=== PATIENT | male | born 1950 | race Caucasian/White ===

== ENCOUNTER 2021-04-07 06:06 | Outpatient (REF) | payer MEDICARE, SELFPAY ==
[2021-04-07 11:22] LABS: MANUAL DIFF FLAG NO
[2021-04-07 11:32] LABS: Basophils Absolute Auto 0.1 X10*3/uL (0.0-0.2); Basophils Percent Auto 1.9 % (0-2); Eosinophils Absolute Auto 0.4 X10*3/uL (0.0-0.4); Eosinophils Percent Auto 5.7 % (0-4); Hemoglobin 15.1 g/dl (14.0-18.0); Imm Gran Abs Auto 0.01 X10*3/uL (0.00-0.03); Imm Gran Pct Auto 0.2 % (0.0-0.4); Lymphocytes Absolute Auto 1.7 X10*3/uL (1.2-4.9); Lymphocytes Percent Auto 26.2 % (20-40); Mean Corpuscular HGB Conc 33.6 g/dl (31.0-36.0); Mean Corpuscular Hemoglobin 31.5 pg (27.0-33.0); Mean Corpuscular Volume 93.8 fL (80-98); Monocytes Absolute Auto 0.7 X10*3/uL (0.1-1.2); Monocytes Percent Auto 10.7 % (2-11); Neutrophils Absolute Auto 3.5 X10*3/uL (2.0-8.3); Neutrophils Percent Auto 55.3 % (45-73); Platelet Count 226 X10*3/uL (160-400); Red Cell Distribution Width 12.1 % (11.0-16.0); White Blood Count 6.3 X10*3/uL (4.8-10.8)
[2021-04-07 12:27] LABS: Alanine Aminotransferase 23 U/L (0-40); Albumin Level 4.6 g/dL (3.5-5.0); Alkaline Phosphatase 43 U/L (39-117); Anion Gap 15 (12-20); Aspartate Amino Transferase 27 U/L (5-37); Bilirubin Total 1.1 mg/dL (0.0-1.0); Blood Urea Nitrogen 14 mg/dL (9-16); Calcium 9.6 mg/dL (8.4-10.2); Carbon Dioxide 26 mmol/L (22-29); Chloride 105 mmol/L (96-108); Cholesterol 203 mg/dL; Estimated Glomerular Filt Rate > 60; Glucose Fasting 83 mg/dL (60-99); HDL Cholesterol 64 mg/dL; LDL Cholesterol Calculated 120 mg/dl; Potassium 4.8 mmol/L (3.3-5.1); Sodium 141 mmol/L (135-145); Triglycerides 97 mg/dL
[2021-04-07 13:03] LABS: Prostate Specific Antigen 0.23 ng/mL (<0.05-4.0)
== END 2021-04-07 06:07 | disposition home or self-care (01) ==
LOC: HO.HMGCLDS 06:06
PROVIDERS: PCP Internal Medicine Medical Oncology; Visit Provider Internal Medicine Medical Oncology
DX: Z12.5 Encounter for screening for malignant neoplasm of prostate (principal); E78.5 Hyperlipidemia, unspecified; E66.3 Overweight; N40.0 Benign prostatic hyperplasia without lower urinary tract symptoms
CPT/HCPCS: 36415; 80053; 80061; 84153; 85025

== ENCOUNTER 2022-04-10 06:29 | Outpatient (REF) | payer MEDICARE, SELFPAY ==
[2022-04-10 11:51] LABS: MANUAL DIFF FLAG NO
[2022-04-10 12:10] LABS: Basophils Absolute Auto 0.1 X10*3/uL (0.0-0.2); Basophils Percent Auto 1.7 % (0-2); Eosinophils Absolute Auto 0.4 X10*3/uL (0.0-0.4); Eosinophils Percent Auto 6.3 % (0-4); Hematocrit 44.2 % (42.0-52.0); Hemoglobin 14.8 g/dl (14.0-18.0); Imm Gran Abs Auto 0.01 X10*3/uL (0.00-0.03); Imm Gran Pct Auto 0.2 % (0.0-0.4); Lymphocytes Absolute Auto 1.7 X10*3/uL (1.2-4.9); Lymphocytes Percent Auto 26.2 % (20-40); Mean Corpuscular HGB Conc 33.5 g/dl (31.0-36.0); Mean Corpuscular Hemoglobin 31.1 pg (27.0-33.0); Mean Corpuscular Volume 92.9 fL (80.0-98.0); Monocytes Absolute Auto 0.6 X10*3/uL (0.1-1.2); Monocytes Percent Auto 9.5 % (2-11); Neutrophils Absolute Auto 3.7 x10*3/uL (2.0-8.3); Neutrophils Percent Auto 56.1 % (45-73); Platelet Count 253 X10*3/uL (160-400); Red Blood Count 4.76 X10*6/uL (4.60-5.80); White Blood Count 6.5 X10*3/uL (4.8-10.8)
[2022-04-10 12:18] LABS: Alanine Aminotransferase 22 U/L (0-40); Albumin Level 4.8 g/dL (3.5-5.0); Alkaline Phosphatase 47 U/L (39-117); Anion Gap 14 (12-20); Aspartate Amino Transferase 26 U/L (5-37); Bilirubin Total 0.9 mg/dL (0.0-1.0); Blood Urea Nitrogen 19 mg/dL (9-16); Calcium 9.7 mg/dL (8.4-10.2); Carbon Dioxide 27 mmol/L (22-29); Chloride 105 mmol/L (96-108); Cholesterol 213 mg/dL; Estimated Glomerular Filt Rate > 60; Glucose Fasting 92 mg/dL (60-99); HDL Cholesterol 58 mg/dL; LDL Cholesterol Calculated 137 mg/dl; Potassium 4.7 mmol/L (3.3-5.1); Sodium 141 mmol/L (135-145); Total Protein 7.4 g/dL (6.5-8.0); Triglycerides 90 mg/dL
== END 2022-04-10 06:30 | disposition home or self-care (01) ==
LOC: HO.HMGCLDS 06:29
PROVIDERS: PCP Internal Medicine Medical Oncology; Visit Provider Internal Medicine Medical Oncology
DX: E78.5 Hyperlipidemia, unspecified (principal); N40.0 Benign prostatic hyperplasia without lower urinary tract symptoms
CPT/HCPCS: 36415; 80053; 80061; 85025

== ENCOUNTER 2023-04-15 06:08 | Outpatient (REF) | payer MEDICARE, SELFPAY ==
[2023-04-15 11:57] LABS: MANUAL DIFF FLAG NO
[2023-04-15 12:14] LABS: Basophils Absolute Auto 0.1 X10*3/uL (0.0-0.2); Basophils Percent Auto 1.6 % (0-2); Eosinophils Absolute Auto 0.4 X10*3/uL (0.0-0.4); Hematocrit 43.9 % (42.0-52.0); Hemoglobin 14.4 g/dl (14.0-18.0); Imm Gran Abs Auto 0.02 X10*3/uL (0.00-0.03); Imm Gran Pct Auto 0.3 % (0.0-0.4); Lymphocytes Absolute Auto 1.5 X10*3/uL (1.2-4.9); Mean Corpuscular HGB Conc 32.8 g/dl (31.0-36.0); Mean Corpuscular Hemoglobin 31.3 pg (27.0-33.0); Mean Corpuscular Volume 95.4 fL (80.0-98.0); Mean Platelet Volume 11.2 fL (9.4-12.4); Monocytes Absolute Auto 0.7 X10*3/uL (0.1-1.2); Monocytes Percent Auto 8.5 % (2-11); Neutrophils Absolute Auto 4.9 x10*3/uL (2.0-8.3); Neutrophils Percent Auto 64.6 % (45-73); Platelet Count 211 X10*3/uL (160-400); Red Cell Distribution Width 12.3 % (11.0-16.0); White Blood Count 7.6 X10*3/uL (4.8-10.8)
[2023-04-15 12:29] LABS: Alanine Aminotransferase 21 U/L (0-40); Albumin Level 4.4 g/dL (3.5-5.0); Alkaline Phosphatase 45 U/L (39-117); Anion Gap 11 (12-20); Aspartate Amino Transferase 26 U/L (5-37); Bilirubin Total 0.6 mg/dL (0.0-1.0); Blood Urea Nitrogen 18 mg/dL (9-16); Calcium 9.8 mg/dL (8.4-10.2); Carbon Dioxide 26 mmol/L (22-29); Chloride 108 mmol/L (96-108); Cholesterol 189 mg/dL (<200); Estimated Glomerular Filt Rate > 60; Glucose Fasting 92 mg/dL (60-99); HDL Cholesterol 57 mg/dL (>40); LDL Cholesterol Calculated 112 mg/dL (<100); Potassium 4.3 mmol/L (3.3-5.1); Sodium 141 mmol/L (135-145); Total Protein 7.2 g/dL (6.5-8.0); Triglycerides 101 mg/dL (<150)
[2023-04-15 13:15] LABS: Prostate Specific Antigen 0.49 ng/mL (<0.05-4.0)
== END 2023-04-15 06:09 | disposition home or self-care (01) ==
LOC: HO.HMGCLDS 06:08
PROVIDERS: PCP Internal Medicine Medical Oncology; Visit Provider Internal Medicine Medical Oncology
DX: Z00.00 Encounter for general adult medical examination without abnormal findings (principal); E66.3 Overweight; N40.0 Benign prostatic hyperplasia without lower urinary tract symptoms; Z12.5 Encounter for screening for malignant neoplasm of prostate
CPT/HCPCS: 36415; 80053; 80061; 84153; 85025

== ENCOUNTER 2023-11-11 10:28 | Emergency (ER) | payer MEDICARE, SELFPAY ==
--- NOTE | 2023-11-11 | ECG_ITS ---
Test Reason : A-FIB Blood Pressure : / mmHG Vent. Rate : 114 BPM Atrial Rate : 000 BPM P-R Int : 000 ms QRS Dur : 086 ms QT Int : 302 ms P-R-T Axes : 000 023 150 degrees QTc Int : 416 ms Atrial fibrillation with rapid ventricular response Minimal voltage criteria for LVH, may be normal variant ( Sokolow-Nguyễn ) ST & T wave abnormality, consider lateral ischemia Abnormal ECG No previous ECGs available Referred By: Generic ED Physician Electronically Signed By:VALERY KHAN MD
--- NOTE | ~2023-11-11 | XR_ITS ---
EXAMINATION: XR CHEST CLINICAL INFORMATION: Shortness of breath. Patient states has been in atrial fibrillation since 11/03/2014 Since COMPARISON: None available. TECHNIQUE: 2 views of the chest were obtained. FINDINGS: The lungs are well hyperinflated with flattening of the hemidiaphragms. No focal consolidation, interstitial pulmonary edema or pneumothorax. No pleural effusion. Heart size is upper limits of normal. Calcification of the thoracic arch indicative of atherosclerotic disease. Mild degenerative changes involve the thoracic spine. Calcification projects over the heart,? Related to the aortic valve. XR/XR chest 2V IMPRESSION: 1. No acute abnormality. 2. Question of calcification of the aortic valve.
[2023-11-11 10:44] VITALS: BP 149/73; PULSE 103; RESP 18; TEMP 36.8; O2SAT 96; BMI 26.6
--- NOTE | 2023-11-11 10:58 | ED_ITS ---
HPI - Arrhythmia/Palpitations General Chief Complaint: Arrhythmia/Palpitations Stated Complaint: dr licona sent over for IV Time Seen by Provider: 11/11/23 10:58 Source: patient, old records reviewed and other Mode of arrival: ambulatory Limitations: no limitations History of Present Illness HPI narrative: 73 y/o male presents to the ER from his PCP (Dr. Alvarez's office) for evaluation of new onset afib. He has been SOB and very dyspneic with exertion for the last 3 days. He states for the last 1 week he noticed things were off and he was being more tired doing his usual activity. He states he has been SOB with laying flat which is new for him as well. He has not slept in the last 3 nights because he can't lay down. He denies any chest pain. No swelling. No N/V/D or abdominal pain. He went to his PCP's office today where he was found to be in new onset afib, HR 90-120s. Sent to the ER for evaluation and treatment. MD complaint: irregular heart beat and atrial fibrillation Onset (ago): day(s) Duration: intermittent Severity: moderate Context: occurred during exertion and other (and laying flat - SOB) Associated symptoms: shortness of breath Related Data Previous Rx's ?Medication ?Instructions ?Recorded apixaban 5 mg tablet (Eliquis) 5 mg PO BID #60 tabs 11/11/23 metoprolol succinate 50 mg 50 mg PO DAILY #30 tabs 11/11/23 tablet,extended release 24 hr (Toprol XL) Allergies Allergy/AdvReac Type Severity Reaction Status Date / Time No Known Allergies Allergy Verified 11/11/23 10:46 Review of Systems 2 Review of Systems: Yes all other systems are reviewed and are negative [facility] Social History Social History Smoked in Last 30 Days: No Use of substances other than those prescribed or required for medical reasons: No Advance Directives: No Advance Directives Information Provided: Yes Physical Exam 2 Vital Signs: Vital Signs: Last Vital Signs Temp 97.7 F 11/11/23 13:03 Pulse 90 11/11/23 13:06 Resp 20 11/11/23 13:03 BP 137/83 11/11/23 13:06 Pulse Ox 96 11/11/23 13:03 O2 Del Method Room Air 11/11/23 13:03 BMI result Body Mass Index 26.6 Appearance: Alert. Oriented X3. No acute distress. Head: normocephalic, atraumatic. Eyes: Pupils equal, round and reactive to light. ENT: Pharynx normal. No tonsillar swelling or exudate. Neck: Normal inspection. Neck supple. No JVD. CVS: Irregularly irregular, rate low 100s. No murmur. Pulses normal. Respiratory: No respiratory distress. Breath sounds normal. Abdomen: Soft and nontender. +BS x4 Skin: Skin warm and dry. Normal skin color. Normal skin turgor. No rashes. Extremities: No lower extremity edema. No joint swelling. Neuro/psych: Oriented X 3. No motor deficit. No sensory deficit. CN II-XII intact. Normal speech and cognition. Course Reevaluation(s) Reevaluation #1: Patient rapid AFib, heart rate 120. IV Cardizem given. Reevaluation #2: Heart rates 70s to 80s after 10 mg of IV cardizem given. Medications Administered Discontinued Medications Generic Name Dose Route Start Last Admin Trade Name Freq PRN Reason Stop Dose Admin Diltiazem HCl 10 mg 11/11/23 11:11 11/11/23 11:31 Diltiazem Hcl 50 Mg/10 Ml Vial IVPUSH 11/11/23 11:12 10 mg STAT STA Administration Metoprolol Succinate 50 mg 11/11/23 12:43 11/11/23 13:06 Metoprolol Succinate Er 50 Mg Tab.Er.24h PO 11/11/23 12:44 50 mg ONCE ONE Administration Protocol Medical Decision Making Medical Decision Making MDM Narrative: 73 yo male with history of HLD and BPH presenting with new onset afib. No cardiac risk factors. No cardiac history aside from a bicuspid aortic valve. He had an echocardiogram many many years ago. No CHF history. He arrives to the ER with heart rates 100-120. He was given IV diltiazem, 10 mg and tolerated it well. Heart rates decreased to 70s 80s. He would like to go home. BNP 900. No evidence of volume overload on examination. No JVD. Chads Vasc score is 2. We discussed stroke risk and anticoagulation. Patient initially was against anticoagulation however we sat down and discussed at more. He is willing to take Eliquis with the hopes of not being on it long-term. Cardiology was consulted. Dr. Hardin is recommending 50 mg of p.o. Toprol in addition to Eliquis. He will need outpatient follow up in the office. He will need an echocardiogram, possible cardioversion if still symptomatic. He understands the importance of remaining on anticoagulation. He was encouraged monitor his pulse rate at home and return to the ER if he has new or worsening symptoms. Patient agrees with plan and is stable for discharge home with p.o. meds and outpatient Cardiology follow-up Differential Diagnosis Differential Diagnoses: The differential diagnosis associated with the presentation includes New onset AFib, SVT, paroxysmal atrial tachycardia Admission/Observation Consideration of admission/observation: Escalation of care including admission/observation considered Consult Healthcare Provider Management of the patient was discussed with: Termite Control Technician Dr. Hardin cardiology Lab Data MDM Lab Attestation statement: I reviewed the patient's lab results. Elevated BNP, normal electrolytes 11/11/23 11:15 11/11/23 11:15 Labs: Lab Results 11/11/23 Range/Units 11:15 WBC 8.0 (4.8-10.8) X10*3/uL RBC 4.62 (4.60-5.80) X10*6/uL Hgb 14.4 (14.0-18.0) g/dl Hct 42.9 (42.0-52.0) % MCV 92.9 (80.0-98.0) fL MCH 31.2 (27.0-33.0) pg MCHC 33.6 (31.0-36.0) g/dl RDW 12.6 (11.0-16.0) % Plt Count 203 (160-400) X10*3/uL MPV 10.8 (9.4-12.4) fL Immature Gran % (Auto) 0.3 (0.0-0.4) % Neut % (Auto) 73.8 H (45-73) % Lymph % (Auto) 14.5 L (20-40) % [place] % (Auto) 9.0 (2-11) % Eos % (Auto) 1.6 (0-4) % Baso % (Auto) 0.8 (0-2) % Lymph # (Auto) 1.2 (1.2-4.9) X10*3/uL [place] # (Auto) 0.7 (0.1-1.2) X10*3/uL Eos # (Auto) 0.1 (0.0-0.4) X10*3/uL Baso # (Auto) 0.1 (0.0-0.2) X10*3/uL Abs Immat Gran (auto) 0.02 (0.00-0.03) X10*3/uL Absolute Neuts (auto) 5.9 (2.0-8.3) x10*3/uL Absolute Nucleated RBC 0.000 (0.0-0.012) X10*3/uL Nucleated RBC % (auto) 0.0 (0.0-0.2) /100WBC PT 12.9 (11.1-13.3) SEC INR 1.1 (0.9-1.1) APTT 37.3 H (26.0-36.8) SEC Sodium 141 (135-145) mmol/L Potassium 4.6 (3.3-5.1) mmol/L Chloride 108 (96-108) mmol/L Carbon Dioxide 25 (22-29) mmol/L Anion Gap 13 (12-20) BUN 19 H (9-16) mg/dL Creatinine 1.00 (0.5-1.4) mg/dL Estim Creat Clear Calc 63.8 Estimated GFR > 60 Random Glucose 101 (60-115) mg/dL Calcium 10.0 (8.4-10.2) mg/dL Total Bilirubin 0.9 (0.0-1.0) mg/dL AST 48 H (5-37) U/L ALT 68 H (0-40) U/L Alkaline Phosphatase 49 (39-117) U/L Troponin I High Sens 21.7 (<3.5-35.0) ng/L B-Natriuretic Peptide 972 H (<100) pg/mL Total Protein 7.6 (6.5-8.0) g/dL Albumin 4.7 (3.5-5.0) g/dL Independent Interpretation I performed an independent interpretation of an: EKG and Plain X-Ray Interpretation: Atrial fibrillation with rapid ventricular response, ventricular rate 114 beats per minute, T-wave inversion in aVL, no ST segment elevation or depression. Chest x-ray without effusion, infiltrate or evidence of volume overload Radiology Impression Discussion of test interpretation with radiology: I have reviewed the radiologist's reading. Radiologist Impression: TECHNIQUE: 2 views of the chest were obtained. FINDINGS: The lungs are well hyperinflated with flattening of the hemidiaphragms. No focal consolidation, interstitial pulmonary edema or pneumothorax. No pleural effusion. Heart size is upper limits of normal. Calcification of the thoracic arch indicative of atherosclerotic disease. Mild degenerative changes involve the thoracic spine. Calcification projects over the heart,? Related to the aortic valve. XR/XR chest 2V IMPRESSION: 1. No acute abnormality. 2. Question of calcification of the aortic valve. Independent Historian Clinical information obtained from an independent historian. History obtained from or confirmed by: Spouse External Record Review External record reviewed: Outpatient record, Prior outpatient labs and Prior outpatient radiology Tests considered The following testing was considered but not selected: ECHO - can be done outpatient Prescription Management I considered prescription management with: Other (Anticoagulation, antiarrhythmic) Critical Care Time Critical Care Time Critical Care Time: Yes Total Critical Care Time: 38 Attestation: I have personally provided critical care time exclusive of time spent on separately billable procedures. Time includes review of lab data, radiology results, discussion with consultants, and monitoring for potential decompensation. Intervention performed as documented. Discharge Plan Discharge Clinical Impression: Atrial fibrillation Qualifiers: Atrial fibrillation type: unspecified Qualified Code(s): I48.91 - Unspecified atrial fibrillation Patient Disposition: Home, Self-Care Instructions: A-fib (Atrial Fibrillation) (DC), Blood Thinners (ED) Additional Instructions: monitor your heart rates at home with a pulse oximeter or an exercise watch take the prescribed metoprolol to help slow your heart rate take the eliquis to thin your blood and reduce stroke risk follow up with the wireless watcher - call for an appointment If you develop new or worsening symptoms call 911 or come back to the ER for further evaluation. Prescriptions: New metoprolol succinate [Toprol XL] 50 mg tablet extended release 24 hr 50 mg PO DAILY Qty: 30 0RF Eliquis 5 mg tablet 5 mg PO BID Qty: 60 0RF [place] [facility] [facility] [place] [facility] [place] (new onset afib) Errol Licona MD [Primary Care Provider] - Interventions: ED Discharge Assessment Last Done: 11/11/23 13:03 Discharge Date/Time: 11/11/23 13:10 Print Language: Jamaican
[2023-11-11 11:17] VITALS: BP 152/79; PULSE 108; RESP 20; TEMP 36.4; O2SAT 97
--- NOTE | 2023-11-11 11:25 | PC.NURSE ---
alberto stewart notified hr 90s to 110s, order to give cardizem iv. no cp/sob/dizziness, reports fatigue
[2023-11-11 11:26] LABS: MANUAL DIFF FLAG NO
[2023-11-11 11:29] LABS: Basophils Absolute Auto 0.1 X10*3/uL (0.0-0.2); Basophils Percent Auto 0.8 % (0-2); Eosinophils Absolute Auto 0.1 X10*3/uL (0.0-0.4); Eosinophils Percent Auto 1.6 % (0-4); Hematocrit 42.9 % (42.0-52.0); Hemoglobin 14.4 g/dl (14.0-18.0); Imm Gran Abs Auto 0.02 X10*3/uL (0.00-0.03); Imm Gran Pct Auto 0.3 % (0.0-0.4); Lymphocytes Absolute Auto 1.2 X10*3/uL (1.2-4.9); Lymphocytes Percent Auto 14.5 % (20-40); Mean Corpuscular HGB Conc 33.6 g/dl (31.0-36.0); Mean Corpuscular Hemoglobin 31.2 pg (27.0-33.0); Mean Corpuscular Volume 92.9 fL (80.0-98.0); Mean Platelet Volume 10.8 fL (9.4-12.4); Monocytes Absolute Auto 0.7 X10*3/uL (0.1-1.2); Neutrophils Absolute Auto 5.9 x10*3/uL (2.0-8.3); Neutrophils Percent Auto 73.8 % (45-73); Platelet Count 203 X10*3/uL (160-400); Red Blood Count 4.62 X10*6/uL (4.60-5.80); Red Cell Distribution Width 12.6 % (11.0-16.0)
[2023-11-11 11:31] VITALS: BP 148/81; PULSE 108
[2023-11-11] MEDS: dilTIAZem HCL 50 MG/10 ML VIAL 10 MG IVPUSH (11:31)
[2023-11-11 11:35] LABS: INTERNATIONAL NORM RATIO 1.1 (0.9-1.1); Prothrombin Time 12.9 SEC (11.1-13.3)
[2023-11-11 11:38] LABS: Partial Thromboplastin Time 37.3 SEC (26.0-36.8)
[2023-11-11 11:43] LABS: Alanine Aminotransferase 68 U/L (0-40); Albumin Level 4.7 g/dL (3.5-5.0); Alkaline Phosphatase 49 U/L (39-117); Anion Gap 13 (12-20); Aspartate Amino Transferase 48 U/L (5-37); Bilirubin Total 0.9 mg/dL (0.0-1.0); Blood Urea Nitrogen 19 mg/dL (9-16); Carbon Dioxide 25 mmol/L (22-29); Chloride 108 mmol/L (96-108); Creatinine Clr Calc Pharmacy 63.8; Estimated Glomerular Filt Rate > 60; Glucose Random 101 mg/dL (60-115); Potassium 4.6 mmol/L (3.3-5.1); Sodium 141 mmol/L (135-145); Total Protein 7.6 g/dL (6.5-8.0)
[2023-11-11 11:49] LABS: B Type Natriuretic Peptide 972 pg/mL (<100)
[2023-11-11 11:51] LABS: Troponin-I High Sensitivity 21.7 ng/L (<3.5-35.0)
[2023-11-11 12:17] VITALS: BP 113/64; PULSE 83; RESP 16; TEMP 36.4; O2SAT 95
[2023-11-11 13:03] VITALS: BP 137/83; PULSE 88; RESP 20; TEMP 36.5; O2SAT 96
[2023-11-11 13:06] VITALS: BP 137/83; PULSE 90
[2023-11-11] MEDS: Metoprolol Succinate ER 50 MG TAB.ER.24H PO (13:06)
== END 2023-11-11 13:10 | disposition home or self-care (01) ==
PROVIDERS: Physician Assistant; Emergency Provider Emergency Medicine; PCP Internal Medicine Medical Oncology
DX: I48.91 Unspecified atrial fibrillation (principal)
CPT/HCPCS: 36415; 71046; 80053; 83880; 84484; 85025; 85610; 85730; 93005; 96374; 99284; 99285

== ENCOUNTER → 2023-11-11 10:54 | Outpatient (BNV) | payer MEDICARE, SELFPAY | PROVIDERS: Emergency Provider Emergency Medicine; PCP Internal Medicine Medical Oncology; Visit Provider Internal Medicine Cardiovascular Disease | DX: I48.91 Unspecified atrial fibrillation (principal) | CPT/HCPCS: 93010 ==

== ENCOUNTER 2023-11-12 02:09 | Emergency (ER) | payer MEDICARE, SELFPAY ==
--- NOTE | 2023-11-12 | ECG_ITS ---
Test Reason : AFIB Blood Pressure : / mmHG Vent. Rate : 104 BPM Atrial Rate : 000 BPM P-R Int : 000 ms QRS Dur : 084 ms QT Int : 338 ms P-R-T Axes : 000 025 110 degrees QTc Int : 444 ms Atrial fibrillation with rapid ventricular response Minimal voltage criteria for LVH, may be normal variant ( Sokolow-Nguyễn ) ST & T wave abnormality, consider lateral ischemia Abnormal ECG When compared with ECG of 11-NOV-2023 10:54, No significant change was found Referred By: Generic ED Physician Electronically Signed By:VALERY KHAN MD
--- NOTE | ~2023-11-12 | XR_ITS ---
EXAMINATION: XR CHEST CLINICAL INFORMATION: Shortness of breath. COMPARISON: 11/11/2023 TECHNIQUE: 2 views of the chest were obtained. FINDINGS: The cardiomediastinal silhouette is stable. There is no focal lung consolidation or pleural effusion. The bony structures and soft tissues are unremarkable. XR/XR chest 2V IMPRESSION: No acute cardiopulmonary process.
[2023-11-12 02:13] VITALS: BP 145/98; PULSE 100; RESP 18; O2SAT 97; BMI 27.3
[2023-11-12 02:24] VITALS: BP 145/87; PULSE 92; RESP 19; TEMP 36.6; O2SAT 98
--- NOTE | 2023-11-12 03:13 | ED_ITS ---
HPI - Arrhythmia/Palpitations General Chief Complaint: Arrhythmia/Palpitations Stated Complaint: afib Time Seen by Provider: 11/12/23 02:36 Source: patient Mode of arrival: ambulatory History of Present Illness HPI narrative: 73-year-old male with recent diagnosis of atrial fibrillation but he picked up his medication and has not taken any and comes in with feeling as though he has gas in his chest and reports he has been unable to get comfortable and lay down but denies any palpitations and says he has continued to have dyspnea on exertion. Related Data Previous Rx's ?Medication ?Instructions ?Recorded apixaban 5 mg tablet (Eliquis) 5 mg PO BID #60 tabs 11/11/23 metoprolol succinate 50 mg 50 mg PO DAILY #30 tabs 11/11/23 tablet,extended release 24 hr (Toprol XL) Allergies Allergy/AdvReac Type Severity Reaction Status Date / Time No Known Allergies Allergy Verified 11/12/23 02:15 Review of Systems Review of Systems: Pertinent positives and negatives as stated in the HPI [facility] Past Medical History Source: nursing notes reviewed Social History Social History Advance Directives: No Advance Directives Information Provided: No Do you have a plan to hurt others: No Plan Physical Exam Vital Signs: Vital Signs: Last Vital Signs Temp 97.8 F 11/12/23 02:24 Pulse 87 11/12/23 04:32 Resp 24 H 11/12/23 04:32 BP 139/83 11/12/23 04:32 Pulse Ox 97 11/12/23 04:32 O2 Del Method Room Air 11/12/23 04:32 BMI result Body Mass Index 27.3 VITAL SIGNS: Reviewed. GENERAL: Well developed, well nourished, in no acute distress. HEAD: Normocephalic/atraumatic EYES: PERRLA, EOMI LUNGS: Normal breath sounds. No adventitious sounds or accessory muscle use. SpO2<98> CARDIOVASCULAR: Regular rate and rhythm without noted murmurs, no JVD or lower extremity edema. ABDOMEN: Soft, non-tender, non-distended with bowel sounds. MUSCULOSKELETAL: No tenderness, deformities, or effusions noted on gross inspection. EXTREMITIES: No cyanosis, clubbing or edema. SKIN: Inspection of the skin reveals no rashes NEUROLOGIC: Alert and oriented x 4. Strength and sensation to light touch were grossly intact x 4. Medications Administered Discontinued Medications Generic Name Dose Route Start Last Admin Trade Name Freq PRN Reason Stop Dose Admin Metoprolol Succinate 25 mg 11/12/23 03:39 11/12/23 03:55 Metoprolol Succinate Er 25 Mg Tab.Er.24h PO 11/12/23 03:40 25 mg ONCE ONE Administration Protocol Metoprolol Tartrate 25 mg 11/12/23 03:39 11/12/23 03:55 Metoprolol Tartrate 25 Mg Tablet PO 11/12/23 03:40 25 mg ONCE ONE Administration Protocol Medical Decision Making Medical Decision Making MDM Narrative: 73-year-old male with history and clinical presentation, DDX: Atrial fibrillation with RVR secondary to not initiating medications. Patient given 25 mg metoprolol tartrate and will receive 25 mg of metoprolol succinate prior to discharge. EKG demonstrates atrial fibrillation with RVR, no evidence of STEMI I reviewed the chest x-ray which is not demonstrate any infiltrates or evidence of venous congestion and otherwise my interpretation is in agreement with radiology's impression. On re-evaluation patient is feeling much improved, heart rate-85 and he is otherwise discharged. Differential Diagnosis Differential Diagnoses: The differential diagnosis associated with the presentation includes Please see the discussion above Admission/Observation Consideration of admission/observation: Escalation of care including admission/observation considered Please see the discussion above Independent Interpretation I performed an independent interpretation of an: EKG Interpretation: Atrial fibrillation with RVR, HR-104, no STEMI, QRS/QTC is within normal limits. There are no acute changes compared to prior from yesterday. Radiology Impression Discussion of test interpretation with radiology: I have reviewed the radiologist's reading. Radiologist Impression: Please see the discussion above External Record Review External record reviewed: Outpatient record, Prior outpatient labs and Prior outpatient radiology Critical Care Time Critical Care Time Critical Care Time: Yes Total Critical Care Time: 45 Attestation: I personally attest to this time spent taking care of the patient. Discharge Plan Discharge Clinical Impression: Atrial fibrillation with RVR Patient Disposition: Home, Self-Care Instructions: A-fib (Atrial Fibrillation) (ED) Additional Instructions: Take the 25 mg metoprolol succinate today at 09:00 with your 1st dose of Eliquis. Tomorrow you will then take your regular prescription 50 mg metoprolol succinate. Please follow-up with your doctor as scheduled. Return to the ER for any worsening symptoms. Prescriptions: No Action metoprolol succinate [Toprol XL] 50 mg tablet extended release 24 hr 50 mg PO DAILY Qty: 30 0RF Eliquis 5 mg tablet 5 mg PO BID Qty: 60 0RF Print Language: Czech
[2023-11-12 03:53] VITALS: BP 129/84; PULSE 90; RESP 20; O2SAT 98
[2023-11-12 03:55] VITALS: BP 129/84; PULSE 90
[2023-11-12] MEDS: Metoprolol Succinate ER 25 MG TAB.ER.24H PO (03:55)
[2023-11-12] MEDS: Metoprolol Tartrate 25 MG TABLET PO (03:55)
[2023-11-12 04:32] VITALS: BP 139/83; PULSE 87; RESP 24; O2SAT 97
[2023-11-12 05:01] VITALS: BP 133/81; PULSE 90; RESP 20; TEMP 36.7; O2SAT 96
== END 2023-11-12 05:05 | disposition home or self-care (01) ==
PROVIDERS: Emergency Provider Student in an Organized Health Care Education/Training Program
DX: I48.20 Chronic atrial fibrillation, unspecified (principal)
CPT/HCPCS: 71046; 93005; 99283; 99285

== ENCOUNTER → 2023-11-12 02:16 | Outpatient (BNV) | payer MEDICARE, SELFPAY | PROVIDERS: Emergency Provider Student in an Organized Health Care Education/Training Program; Visit Provider Internal Medicine Cardiovascular Disease | DX: I48.91 Unspecified atrial fibrillation (principal) | CPT/HCPCS: 93010 ==

== ENCOUNTER 2023-11-19 09:55 | Outpatient (AMB) | payer MEDICARE, SELFPAY ==
[2023-11-19 09:58] VITALS: BP 120/90; PULSE 91; BMI 27.7
--- NOTE | 2023-11-19 09:58 | MHC.OFFVIS ---
Vital Signs 11/19/23 09:58 Height 5 ft 9 in Weight 187 lb 13.341 oz BMI 27.7 BP 120/90 H Blood Pressure Location Lt brachial Position Sitting Pulse 91 Pulse Source Pulse Oximeter Intake Visit Reasons: [facility] [place] ED f/u NS Chip Mixer Required: No Pump Press Operator: Pump Press Operator Present Allergies No Known Allergies Allergy (Verified 11/19/23 10:01) Medication List - Last Reconciled 11/19/23 by IMELDA Stone apixaban (Eliquis) 5 mg PO BID finasteride 5 mg PO DAILY furosemide (Lasix) 20 mg PO DAILY metoprolol succinate ER (Toprol XL) 50 mg PO DAILY simvastatin 20 mg PO BEDTIME HPI HPI [facility] [place] ED f/u NS: Details: Berto is a 73-year-old male with past medical history of hyperlipidemia, aortic stenosis who recently presented to the emergency room with shortness of breath and found to have new onset atrial fibrillation. Was started on metoprolol and Eliquis. He presented to the emergency room again the following day with ongoing symptoms. He had not been fully established on his home medications at that time. He was given an extra dose of metoprolol. He was referred to Cardiology in follow-up. Today he presents for his cardiology consultation. He tells me that he was told he had aortic stenosis several years ago and had seen Dr. Cuellar. He does not believe he has had an echocardiogram in many years. He states it is now followed by his PCP Dr. Smith. Otherwise no history of CAD, mi, heart arrhythmias, Congestive heart failure. Three days prior to his ER arrival he noticed some shortness of breath. His symptoms persisted and he presented to the ER on 11/10. He did have new finding of AFib RVR and was treated with heart rate control. Since starting on metoprolol he states he has been feeling a little better but continues to have shortness of breath with activity. He has no clear PND, orthopnea or edema. Had difficulty climbing his stairs this morning. No chest discomfort at rest or with activity. Intermittent heart palpitations noted. No lightheadedness, presyncope, syncope, falls. No bleeding issues with Eliquis use. Has CAD in his family, father had coronary artery bypass grafting in his 70s, brother had coronary artery bypass grafting age 84, another brother has a coronary stent. He walks 2 miles daily when he is feeling well. is present. [facility] Family History Father Congenital stenosis of aorta Mother No problems noted. Social History Alcohol intake: current Alcohol intake frequency: holidays/special occasions only Patient Tobacco Use Status: Never used Tobacco Review of Systems Const All systems reviewed & are unremarkable except as noted in HPI and below Reports fatigue ENT Denies dizziness Card Denies chest pain, Denies chest pain at rest, Denies chest pain with activity, Denies rapid heart rate, Denies pedal edema, Denies edema, Denies leg edema, Denies lightheadedness, Denies palpitations, Reports dyspnea, Reports dyspnea on exertion and Denies orthopnea Resp Denies cough, Reports dyspnea and Reports dyspnea on exertion GI Denies hematochezia and Denies change in stool character Musc Denies abnormal gait, Denies limited range of motion, Denies muscle cramps, Denies muscle weakness, Denies numbness, Denies radiating pain into limb, Denies stiffness and Denies tingling Neuro Denies abnormal gait, Denies dizziness, Denies numbness and Denies tingling Endo Reports fatigue and Denies palpitations Physical Exam Vital Signs: Last Vital Signs Pulse 91 11/19/23 09:58 BP 120/90 H 11/19/23 09:58 BMI result Body Mass Index 27.7 Const General: cooperative, healthy appearing, comfortable and no acute distress Orientation/consciousness: patient oriented x3 Neck Neck: Yes normal visual inspection and Yes no JVD Resp Effort & Inspection: normal respiratory effort Auscultation: clear to auscultation bilaterally, rales (1/3 up on left and base of right), no rhonchi and no wheezes Cardio Jugular venous distension: no JVD Rate: regular rate Rhythm: abnormal rhythm Heart sounds: S1 normal heart sound present, S2 normal heart sound present, no murmurs and no rubs Skin General skin exam: no rashes or lesions noted Neuro General: patient oriented x3 Extrem General: Yes normal to inspection and No no pedal edema Psych Appearance: grossly normal Mental Status: mental status grossly normal Speech and movement: Normal speech and movement present Office Procedures EKG Details: Today, read by me, atrial fibrillation, moderate criteria for LVH, nonspecific ST and T-wave abnormality, rate 84. 27150-Bapsdelhyxjzoedkg, Complete Assessment & Plan Assessment & Plan (1) Atrial fibrillation: Code(s): I48.91 - Unspecified atrial fibrillation Category: Medical Qualifiers: Atrial fibrillation type: unspecified Qualified Code(s): I48.91 - Unspecified atrial fibrillation Plan: New finding of atrial fibrillation. Symptom of shortness of breath, fatigue, palpitations. He was started on metoprolol XL 50 mg daily. Chads Vasc score of 2 with age. He was put on Eliquis 5 mg b.i.d. for anticoagulation. He did require a 2nd ER visit the day after his 1st due to ongoing symptoms however he had not been fully established on his home meds at that time. Now that he is on metoprolol he is reporting less palpitation and some improvement in his shortness of breath however he still has exertional shortness of breath which is unusual for him. Labs done on 11/11/2023 had shown BNP 972. Chest x-ray that day showed no active disease. At this time I can hear rales in each lower lobe. He may be developing mild Congestive heart failure from his AFib. Will start on Lasix 20 mg daily. If his symptoms greatly improved he can reduce dose down to every other day. Aortic murmur noted on examination, faint sounding however no clear 2nd heart sound noted. could be severe. Will check an echocardiogram as soon as able. If echo does show severe then transesophageal echo and cardioversion will be done soon. If echocardiogram does not show severe and patient does get some improvement in his shortness of breath with Lasix use then cardioversion will be planned after 3-4 weeks of uninterrupted anticoagulation. Spent time reviewing diagnosis of AFib, aortic stenosis, stroke risk with AFib, need for medication management, testing and treatment. An EKG done today shows atrial fibrillation, moderate criteria for LVH, nonspecific ST and T-wave abnormality, rate 84. At this time continue current med management with metoprolol and Eliquis. Adding Lasix as above. Follow-up to be determined once echo is read. Emergency care if needed for symptoms. (2) SOB (shortness of breath): Code(s): R06.02 - Shortness of breath Category: Medical Plan: As above (3) CHF (congestive heart failure): Code(s): I50.9 - Heart failure, unspecified Category: Medical Plan: Elevated BNP, rales and shortness of breath. Started on Lasix (4) Aortic stenosis: Code(s): I35.0 - Nonrheumatic aortic (valve) stenosis Category: Medical Plan: Reported history of aortic stenosis previously followed by Dr. Cuellar. Heart murmur noted on exam. Heart tones distant, could be severe. Checking echo. Plan Time spent on chart review, documentation, interview and assessment, education Orders: Orders CA echo transthoracic complete Today I35.0 - Nonrheumatic aortic (valve) stenosis, I48.91 - Unspecified atrial fibrillation, I50.9 - Heart failure, unspecified, R06.02 - Shortness of breath Medications: New furosemide (Lasix) 20 mg PO DAILY 30 tabs 1RF Coding Level of Care Code New Pt Level 4 (99602) Diagnoses Atrial fibrillation I48.91 Atrial fibrillation type: unspecified SOB (shortness of breath) R06.02 CHF (congestive heart failure) I50.9 Aortic stenosis I35.0 CPT Codes EKG - CPT: 51939-[id number], Complete ([id number]) Time Spent (min) 40
== END 2023-11-19 11:11 | disposition home or self-care (01) ==
PROVIDERS: PCP Internal Medicine Medical Oncology; Visit Provider Nurse Practitioner Family
DX: I48.91 Unspecified atrial fibrillation (principal); R06.02 Shortness of breath; I50.9 Heart failure, unspecified; I35.0 Nonrheumatic aortic (valve) stenosis
CPT/HCPCS: 93010; 99204

== ENCOUNTER → 2023-11-19 09:55 | Outpatient (BNVA) | payer MEDICARE, SELFPAY | PROVIDERS: PCP Internal Medicine Medical Oncology; Visit Provider Nurse Practitioner Family | DX: I48.91 Unspecified atrial fibrillation (principal); I50.9 Heart failure, unspecified; I35.0 Nonrheumatic aortic (valve) stenosis; R06.02 Shortness of breath | CPT/HCPCS: 93005; 99202 ==

== ENCOUNTER → 2023-11-20 12:32 | Outpatient (REF) | payer MEDICARE, SELFPAY ==
--- NOTE | 2023-11-20 12:35 | CA_ITS ---
Transthoracic Echocardiogram Patient (Last, First, Middle): Berto Pappas M Gender: Male Date of : 1950 Age: 73 Procedure Date: 11/20/2023 Procedure Type: Transthoracic Echocardiogram Location: OP Height: 175.26 cm Weight: 83.92 kg BSA: 2.00 m2 Heart Rate: 81 bpm BP: 116 / 68 mmHg Cigar Wrapper: SB Referring MD: Kim Guzman GRAVEL TRUCK DRIVERMargarethC Symptoms: I48.91 - Unspecified atrial fibrillation Study Quality: Fair but adequate ECG Rhythm: Atrial Fibrillation Conclusions: - The left ventricular systolic function is moderate to severely decreased. The calculated ejection fraction is 34% by biplane method. - The mid inferior and basal inferoseptal segments are hypokinetic. - The inferolateral wall, the basal inferior, and mid inferoseptal segments are akinetic. - There is severe aortic valve stenosis. - There is mild dilatation of the ascending aorta measuring 4.20 cm. Findings Procedure Information The quality of the study was technically difficult. The study quality is limited by lung artifact. Left Ventricle Mildly increased left ventricular cavity size. The left ventricular systolic function is moderate to severely decreased. The calculated ejection fraction is 34% by biplane method. There is evidence of regional wall motion abnormalities. Diastolic function is indeterminate on the basis of available data. There is mild septal asymmetric hypertrophy. Wall Motion Rest Echo Findings The mid inferior and basal inferoseptal segments are hypokinetic. The inferolateral wall, the basal inferior, and mid inferoseptal segments are akinetic. Right Ventricle Mildly increased right ventricular cavity size. There is mild to moderately decreased right ventricular systolic function. Atria The left atrium is normal in size. The right atrium is moderately dilated. Aortic Valve There is severe calcification of the aortic valve. There is severe aortic valve stenosis. The peak aortic velocity is 4.79 m/s with a calculated peak gradient of 92 mmHg. The mean gradient is 58 mmHg. The aortic valve area is 0.63 cm2. Trace to mild aortic regurgitation. Mitral Valve There is mild mitral annular calcification. There is mild mitral valve regurgitation. There is no mitral valve stenosis. Pulmonic Valve The pulmonic valve is likely normal. Tricuspid Valve There is trace tricuspid valve regurgitation. There is no evidence of pulmonary hypertension. Great Vessels The aortic arch is normal in size. There is mild dilatation of the ascending aorta measuring 4.20 cm. Venous The inferior vena cava is normal in size and collapses greater than 50% with inspiration. Pericardium/Pleural There is no evidence of pericardial effusion. Prior Study Comparison No prior study available for comparison. Measurements 2D Linear Measurements IVSd: 1.17 0.6-0.9/0.6-1.0 cm LVIDd: 5.78 3.9-5.3/4.2-5.9 cm LVIDd Index: 2.89 2.4-3.2/2.2-3.1 cm/m2 LVIDs: 5.12 2.0-3.6 cm LVPWd: 0.90 0.7-1.1 cm LA Diam: 4.60 2.7-3.8/3.0-4.0 cm LAIDs Index: 2.30 1.5-2.3 cm/m2 LV Mass: 303.03 67-162/88-224 g LV Mass Index: 151.52 43-95/49-115 g/m2 LVOT Diam: 2.30 3.0+(-)1.3 cm 2D Systolic Function EF 4C: 29.40 >55% EF 2C: 38.50 >55% EF BiP: 34.10 >55% Mitral Valve MV Pk E: 1.23 Aortic Valve AoV Pk Taqueria: 4.79 AoV Mn Taqueria: 3.58 AoV VTI: 1.06 AoV Pk Grad: 92.00 Aov Mn Grad: 58.00 NORA Cont.VTI: 0.63 AI Pk [place]queria: 2.37 AI [place]: 1.37 LVOT LVOT Pk Taqueria: 0.69 LVOT Mn [place]queria: 0.51 LVOT VTI: 0.16 LVOT Pk Grad: 2.00 LVOT Mn Grad: 1.00 LVOT Diam: 2.30 LVOT Area: 4.15 Diastolic Function MV Pk E: 1.23 Right Ventricle TAPSE (mm): 12.60 TVS' Taqueria: 9.79 Tricuspid Valve TR Pk Taqueria: 2.54 TR Pk Grad: 26.00 RA Press: 3.00 RVSP: 29.00 Great Vessels Aorta Sinus of Valsalva: 3.60 2.0-3.5 cm Ao Asc: 4.20 2.1-3.4 cm Ao Arch: 3.50 Pulmonary Valve PV Pk Taqueria: 0.73 Peak PV Grad: 2.00 Updated in Other Vendor System with Status of Final Angel Mri MD electronically signed on 11/22/2023 3:09:44 PM with status of Final
== END ==
LOC: HO.CARD 12:32
PROVIDERS: PCP Internal Medicine Medical Oncology; Visit Provider Nurse Practitioner Family
DX: I48.91 Unspecified atrial fibrillation (principal); R06.02 Shortness of breath; I50.9 Heart failure, unspecified; I35.0 Nonrheumatic aortic (valve) stenosis
CPT/HCPCS: 93306

== ENCOUNTER → 2023-11-20 12:35 | Outpatient (BNV) | payer MEDICARE, SELFPAY | PROVIDERS: PCP Internal Medicine Medical Oncology; Visit Provider Internal Medicine | DX: I35.2 Nonrheumatic aortic (valve) stenosis with insufficiency (principal) | CPT/HCPCS: 93306 ==

== ENCOUNTER 2023-11-29 06:06 | Outpatient (REF) | payer MEDICARE, SELFPAY ==
[2023-11-29 06:29] LABS: MANUAL DIFF FLAG NO
[2023-11-29 07:48] LABS: Basophils Absolute Auto 0.1 X10*3/uL (0.0-0.2); Basophils Percent Auto 1.4 % (0-2); Eosinophils Absolute Auto 0.3 X10*3/uL (0.0-0.4); Eosinophils Percent Auto 4.5 % (0-4); Hematocrit 44.5 % (42.0-52.0); Hemoglobin 14.7 g/dl (14.0-18.0); Imm Gran Abs Auto 0.01 X10*3/uL (0.00-0.03); Imm Gran Pct Auto 0.1 % (0.0-0.4); Lymphocytes Absolute Auto 1.5 X10*3/uL (1.2-4.9); Lymphocytes Percent Auto 21.4 % (20-40); Mean Corpuscular Volume 93.9 fL (80.0-98.0); Mean Platelet Volume 10.8 fL (9.4-12.4); Monocytes Absolute Auto 0.7 X10*3/uL (0.1-1.2); Monocytes Percent Auto 10.4 % (2-11); Neutrophils Absolute Auto 4.3 x10*3/uL (2.0-8.3); Neutrophils Percent Auto 62.2 % (45-73); Platelet Count 252 X10*3/uL (160-400); Red Blood Count 4.74 X10*6/uL (4.60-5.80); Red Cell Distribution Width 12.6 % (11.0-16.0); White Blood Count 6.9 X10*3/uL (4.8-10.8)
[2023-11-29 07:51] LABS: INTERNATIONAL NORM RATIO 1.1 (0.9-1.1); Prothrombin Time 13.9 SEC (11.1-13.3)
[2023-11-29 08:08] LABS: Anion Gap 15 (12-20); Blood Urea Nitrogen 23 mg/dL (9-16); Calcium 9.8 mg/dL (8.4-10.2); Carbon Dioxide 27 mmol/L (22-29); Chloride 104 mmol/L (96-108); Estimated Glomerular Filt Rate > 60; Glucose Random 89 mg/dL (60-115); Sodium 142 mmol/L (135-145)
== END 2023-11-29 06:07 | disposition home or self-care (01) ==
LOC: HO.LAB 06:06
PROVIDERS: PCP Internal Medicine Medical Oncology; Visit Provider Nurse Practitioner Family
DX: R93.1 Abnormal findings on diagnostic imaging of heart and coronary circulation (principal); I35.0 Nonrheumatic aortic (valve) stenosis
CPT/HCPCS: 36415; 80048; 85025; 85610

== ENCOUNTER → 2023-12-03 23:59 | Outpatient (BNV) | payer MEDICARE, SELFPAY | PROVIDERS: PCP Internal Medicine Medical Oncology; Visit Provider Internal Medicine Cardiovascular Disease | DX: I50.20 Unspecified systolic (congestive) heart failure (principal); I35.8 Other nonrheumatic aortic valve disorders | CPT/HCPCS: 93458; 99152 ==

== ENCOUNTER 2023-12-19 13:26 | Outpatient (AMB) | payer MEDICARE, SELFPAY ==
[2023-12-19 13:40] VITALS: BP 120/72; PULSE 85; BMI 27.3
--- NOTE | 2023-12-19 13:40 | MHC.OFFVIS ---
Vital Signs 12/19/23 13:40 Height 5 ft 9 in Weight 185 lb 3.013 oz BMI 27.3 BP 120/72 Blood Pressure Location Lt brachial Position Sitting Pulse 85 Pulse Source Pulse Oximeter Intake Visit Reasons: fu cardiac cath Geodesist: Geodesist Present Allergies No Known Allergies Allergy (Verified 12/19/23 13:42) Medication List - Last Reconciled 12/19/23 by Kim Guzman, ELEVATOR CONSTRUCTOR HELPER-C apixaban (Eliquis) 5 mg PO BID finasteride 5 mg PO DAILY furosemide (Lasix) 20 mg PO DAILY metoprolol succinate ER (Toprol XL) 50 mg PO DAILY simvastatin 20 mg PO BEDTIME HPI HPI fu cardiac cath: Details: Berto is a 73-year-old male with past medical history of hyperlipidemia, aortic stenosis who recently presented to the emergency room with shortness of breath and found to have new onset atrial fibrillation. Was started on metoprolol and Eliquis. On last visit an echocardiogram was ordered showing severe aortic stenosis. This led to cardiac catheterization, referral for TAVR eval and he now presents for follow-up. Today he reports that he has not received any calls from Dr. Reilly office for a TAVR evaluation appointment. He is quite frustrated with this process. He is having ongoing issues with shortness of breath with activity. He has been taking the Lasix daily which has helped some. He has no clear PND, orthopnea or edema at this time. No chest discomfort at rest or with activity. Intermittent heart palpitations reported. No lightheadedness, presyncope, syncope, falls. No bleeding issues with Eliquis use. Right radial catheterization site is healing well. is present. Taking all meds as directed. [facility] Family History Father Congenital stenosis of aorta Mother No problems noted. Social History Alcohol intake: current Alcohol intake frequency: holidays/special occasions only Patient Tobacco Use Status: Never used Tobacco Review of Systems Const All systems reviewed & are unremarkable except as noted in HPI and below ENT Denies dizziness Card Denies chest pain, Denies chest pain at rest, Denies chest pain with activity, Denies rapid heart rate, Denies pedal edema, Denies edema, Denies leg edema, Denies lightheadedness, Denies palpitations, Reports dyspnea, Reports dyspnea on exertion and Denies orthopnea Resp Denies cough, Reports dyspnea and Reports dyspnea on exertion GI Denies hematochezia and Denies change in stool character Musc Denies abnormal gait, Denies limited range of motion, Denies muscle cramps, Denies muscle weakness, Denies numbness, Denies radiating pain into limb, Denies stiffness and Denies tingling Neuro Denies abnormal gait, Denies dizziness, Denies numbness and Denies tingling Endo Denies palpitations Physical Exam Vital Signs: Last Vital Signs Pulse 85 12/19/23 13:40 BP 120/72 12/19/23 13:40 BMI result Body Mass Index 27.3 Const General: cooperative, healthy appearing, comfortable and no acute distress Orientation/consciousness: patient oriented x3 Neck Neck: Yes normal visual inspection and Yes no JVD Resp Effort & Inspection: normal respiratory effort Auscultation: clear to auscultation bilaterally, rales (Few rales in right base), no rhonchi and no wheezes Cardio Jugular venous distension: no JVD Rate: regular rate Rhythm: abnormal rhythm Heart sounds: S1 normal heart sound present, S2 normal heart sound present, no murmurs and no rubs Skin General skin exam: no rashes or lesions noted Neuro General: patient oriented x3 Extrem Other: right radial catheterization site well healed, easily palpable radial pulse. General: Yes normal to inspection and No no pedal edema Psych Appearance: grossly normal Mental Status: mental status grossly normal Speech and movement: Normal speech and movement present Assessment & Plan Assessment & Plan (1) Aortic stenosis: Code(s): I35.0 - Nonrheumatic aortic (valve) stenosis Category: Medical Plan: Reported history of aortic stenosis previously followed by Dr. Cuellar. He had not had it checked by echocardiogram in many years. On last visit heart murmur noted, tones distant and 2nd heart tone not clearly audible. An echocardiogram was done on 11/20/2023 showing EF 34%, inferior wall motion abnormality, severe aortic stenosis with mean gradient 58 mmHg, aortic valve area 0.63 centimeter sq. He does have symptoms of shortness of breath with activity. On last visit he had signs of mild Congestive heart failure. He was started on daily Lasix. He underwent cardiac catheterization on 12/03/2023 showing only minimal irregularities in the LAD and RCA. He was referred to Dr. Mohan for TAVR evaluation. There has been under the lay so far in getting him an appointment. I called Dr. Reilly office myself and they state they will call him later today. Patient remains symptomatic with shortness of breath with minimal walking. He has been very limited with his physical activity. He denies chest discomfort, presyncope, syncope. Diagnosis of severe aortic stenosis and cardinal signs of severe reviewed with him. He is anxious to have TAVR procedure completed. Discussed possibility of having cardioversion while he is waiting and he declines. He does not want to do anything that might delay his valve replacement surgery. Following this appointment I reached out to him to see whether he had heard from cardiac surgery. He tells me he has an appointment on Tuesday 12/26 at 11:45. Cardiology follow-up in this office 1 month, sooner if needed. Informed he may cancel that appointment if it interferes with his TAVR dates. Emergency care if needed for any acute symptoms. (2) Atrial fibrillation: Code(s): I48.91 - Unspecified atrial fibrillation Category: Medical Qualifiers: Atrial fibrillation type: unspecified Qualified Code(s): I48.91 - Unspecified atrial fibrillation Plan: Recent finding of atrial fibrillation. Symptom of shortness of breath, fatigue, palpitations. He was started on metoprolol XL 50 mg daily. Chads Vasc score of 2 with age. He was put on Eliquis 5 mg b.i.d. for anticoagulation. He did require a 2nd ER visit the day after his 1st due to ongoing symptoms however he had not been fully established on his home meds at that time. Now that he is on metoprolol he is reporting less palpitation and some improvement in his shortness of breath however he still has exertional shortness of breath which is unusual for him. Labs done on 11/11/2023 had shown BNP 972. Chest x-ray that day showed no active disease. On last visit he had rales in each lower lobe consistent with mild Congestive heart failure from his AFib. He was started on Lasix 20 mg daily. At this time he does not appear fluid overloaded on exam. He does have a few faint rales in right base. No cough, PND, orthopnea or edema. His shortness of breath may be related to his atrial fibrillation in combination with the aortic stenosis. His pulse is irregularly irregular on examination. He is clinically still in AFib. Will continue on current metoprolol and Eliquis. He has severe and will need TAVR as above. Cardioversion will be readdressed at a later date. Not likely to be done prior to TAVR. Anticoagulation will then need to be uninterrupted for 3-4 weeks postprocedure. He does not want anything that will delay his TAVR. (3) SOB (shortness of breath): Code(s): R06.02 - Shortness of breath Category: Medical Plan: As above (4) CHF (congestive heart failure): Code(s): I50.9 - Heart failure, unspecified Category: Medical Plan: Elevated BNP, rales and shortness of breath last visit. Started on Lasix (5) S/P cardiac catheterization: Comment: 12/03/2023 showing LAD and RCA each with minimal luminal irregularities Code(s): Z98.890 - Other specified postprocedural states Category: Surgical Plan: Right radial catheterization site healing well Plan Time spent on chart review, documentation, interview and assessment, education Medications: Refilled furosemide (Lasix) 20 mg PO DAILY 30 tabs 5RF Coding Level of Care Code Est Pt Level 4 (22227) Diagnoses Aortic stenosis I35.0 Atrial fibrillation I48.91 Atrial fibrillation type: unspecified SOB (shortness of breath) R06.02 CHF (congestive heart failure) I50.9 S/P cardiac catheterization Z98.890 Time Spent (min) 36
== END 2023-12-19 14:35 | disposition home or self-care (01) ==
PROVIDERS: PCP Internal Medicine Medical Oncology; Visit Provider Nurse Practitioner Family
DX: I35.0 Nonrheumatic aortic (valve) stenosis (principal); I48.91 Unspecified atrial fibrillation; R06.02 Shortness of breath; I50.9 Heart failure, unspecified; Z98.890 Other specified postprocedural states
CPT/HCPCS: 99214

== ENCOUNTER → 2023-12-19 13:26 | Outpatient (BNVA) | payer MEDICARE, SELFPAY | PROVIDERS: PCP Internal Medicine Medical Oncology; Visit Provider Nurse Practitioner Family | DX: I35.0 Nonrheumatic aortic (valve) stenosis (principal); I48.91 Unspecified atrial fibrillation; I50.9 Heart failure, unspecified; R06.02 Shortness of breath; Z98.890 Other specified postprocedural states | CPT/HCPCS: 99212 ==

== ENCOUNTER 2024-04-16 06:04 | Outpatient (REF) | payer MEDICARE, SELFPAY ==
[2024-04-16 06:15] LABS: MANUAL DIFF FLAG NO
[2024-04-16 06:59] LABS: Alanine Aminotransferase 26 U/L (0-40); Albumin Level 4.5 g/dL (3.5-5.0); Alkaline Phosphatase 58 U/L (39-117); Anion Gap 10 (12-20); Aspartate Amino Transferase 28 U/L (5-37); Bilirubin Total 0.7 mg/dL (0.0-1.0); Blood Urea Nitrogen 15 mg/dL (9-16); Calcium 10.1 mg/dL (8.4-10.2); Carbon Dioxide 30 mmol/L (22-29); Chloride 108 mmol/L (96-108); Cholesterol 179 mg/dL (<200); Estimated Glomerular Filt Rate > 60; Glucose Fasting 97 mg/dL (60-99); HDL Cholesterol 56 mg/dL (>40); LDL Cholesterol Calculated 96 mg/dL (<100); Potassium 4.7 mmol/L (3.3-5.1); Sodium 143 mmol/L (135-145); Total Protein 7.5 g/dL (6.5-8.0); Triglycerides 138 mg/dL (<150)
[2024-04-16 07:02] LABS: Basophils Absolute Auto 0.1 X10*3/uL (0.0-0.2); Basophils Percent Auto 1.9 % (0-2); Eosinophils Absolute Auto 0.3 X10*3/uL (0.0-0.4); Eosinophils Percent Auto 4.5 % (0-4); Hematocrit 47.2 % (42.0-52.0); Hemoglobin 15.8 g/dl (14.0-18.0); Imm Gran Abs Auto 0.02 X10*3/uL (0.00-0.03); Imm Gran Pct Auto 0.3 % (0.0-0.4); Lymphocytes Absolute Auto 1.6 X10*3/uL (1.2-4.9); Lymphocytes Percent Auto 23.9 % (20-40); Mean Corpuscular HGB Conc 33.5 g/dl (31.0-36.0); Mean Corpuscular Hemoglobin 30.9 pg (27.0-33.0); Mean Corpuscular Volume 92.2 fL (80.0-98.0); Mean Platelet Volume 10.3 fL (9.4-12.4); Monocytes Absolute Auto 0.8 X10*3/uL (0.1-1.2); Monocytes Percent Auto 11.2 % (2-11); Neutrophils Percent Auto 58.2 % (45-73); Platelet Count 201 X10*3/uL (160-400); Red Blood Count 5.12 X10*6/uL (4.60-5.80); Red Cell Distribution Width 12.6 % (11.0-16.0); White Blood Count 6.9 X10*3/uL (4.8-10.8)
[2024-04-16 07:17] LABS: Prostate Specific Antigen 0.21 ng/mL (<0.05-4.0)
== END 2024-04-16 06:05 | disposition home or self-care (01) ==
LOC: HO.LAB 06:04
PROVIDERS: PCP Internal Medicine Medical Oncology; Visit Provider Internal Medicine Medical Oncology
DX: E78.5 Hyperlipidemia, unspecified (principal); E66.3 Overweight; N40.0 Benign prostatic hyperplasia without lower urinary tract symptoms; Z12.5 Encounter for screening for malignant neoplasm of prostate
CPT/HCPCS: 36415; 80053; 80061; 84153; 85025

== ENCOUNTER 2024-10-12 06:07 | Outpatient (REF) | payer MEDICARE, SELFPAY ==
[2024-10-12 06:42] LABS: MANUAL DIFF FLAG NO
[2024-10-12 07:28] LABS: Basophils Absolute Auto 0.1 X10*3/uL (0.0-0.2); Basophils Percent Auto 1.2 % (0-2); Eosinophils Absolute Auto 0.3 X10*3/uL (0.0-0.4); Eosinophils Percent Auto 4.7 % (0-4); Hematocrit 48.8 % (42.0-52.0); Hemoglobin 16.9 g/dl (14.0-18.0); Imm Gran Abs Auto 0.03 X10*3/uL (0.00-0.03); Imm Gran Pct Auto 0.4 % (0.0-0.4); Lymphocytes Absolute Auto 1.8 X10*3/uL (1.2-4.9); Mean Corpuscular HGB Conc 34.6 g/dl (31.0-36.0); Mean Corpuscular Hemoglobin 31.5 pg (27.0-33.0); Mean Platelet Volume 10.7 fL (9.4-12.4); Monocytes Absolute Auto 0.9 X10*3/uL (0.1-1.2); Monocytes Percent Auto 12.1 % (2-11); Neutrophils Absolute Auto 4.2 x10*3/uL (2.0-8.3); Neutrophils Percent Auto 57.6 % (45-73); Platelet Count 205 X10*3/uL (160-400); Red Blood Count 5.36 X10*6/uL (4.60-5.80); Red Cell Distribution Width 11.9 % (11.0-16.0); White Blood Count 7.3 X10*3/uL (4.8-10.8)
[2024-10-12 07:54] LABS: Alanine Aminotransferase 40 U/L (0-40); Albumin Level 4.6 g/dL (3.5-5.0); Alkaline Phosphatase 54 U/L (39-117); Anion Gap 16 (12-20); Aspartate Amino Transferase 40 U/L (5-37); Bilirubin Total 0.8 mg/dL (0.0-1.0); Blood Urea Nitrogen 21 mg/dL (9-16); Calcium 10.1 mg/dL (8.4-10.2); Carbon Dioxide 30 mmol/L (22-29); Chloride 101 mmol/L (96-108); Cholesterol 183 mg/dL (<200); Estimated Glomerular Filt Rate > 60; Glucose Fasting 100 mg/dL (60-99); HDL Cholesterol 57 mg/dL (>40); LDL Cholesterol Calculated 102 mg/dL (<100); Potassium 3.6 mmol/L (3.3-5.1); Sodium 143 mmol/L (135-145); Total Protein 8.1 g/dL (6.5-8.0); Triglycerides 120 mg/dL (<150)
== END 2024-10-12 06:08 | disposition home or self-care (01) ==
LOC: HO.LAB 06:07
PROVIDERS: PCP Internal Medicine Medical Oncology; Visit Provider Internal Medicine Medical Oncology
DX: Z00.00 Encounter for general adult medical examination without abnormal findings (principal); Z12.5 Encounter for screening for malignant neoplasm of prostate; E78.5 Hyperlipidemia, unspecified; N40.0 Benign prostatic hyperplasia without lower urinary tract symptoms; I48.0 Paroxysmal atrial fibrillation
CPT/HCPCS: 36415; 80053; 80061; 84153; 85025

== ENCOUNTER 2025-03-04 06:07 | Emergency (ER) | payer MEDICARE, SELFPAY ==
--- NOTE | 2025-03-04 | ECG_ITS ---
Test Reason : AFIB Blood Pressure : */* mmHG Vent. Rate : 65 BPM Atrial Rate : * BPM P-R Int : * ms QRS Dur : 96 ms QT Int : 420 ms P-R-T Axes : * 19 68 degrees QTcB Int : 436 ms Atrial fibrillation Abnormal ECG When compared with ECG of 12-Nov-2023 02:16, Vent. rate has decreased by 39 bpm T wave inversion no longer evident in Lateral leads Referred By: Generic ED Physician Electronically Signed By: Reza Ramirez
--- NOTE | ~2025-03-04 | XR_ITS ---
EXAMINATION: XR CHEST 1 VIEW HISTORY: weakness COMPARISON: Comparison is made with the prior examination dated 420 FINDINGS: A single AP portable view of the chest performed at 8:02 AM is submitted. The lungs are expanded and clear. There is no pleural effusion, pneumothorax, or pulmonary vascular congestion. The heart is normal in size. The aorta is tortuous and calcified. There is degenerative disc disease of the spine. XR/XR chest 1V IMPRESSION: No acute cardiopulmonary abnormality. Electronically signed by: Errol Jara MD 03/04/2025 08:16 AM EDT
--- NOTE | ~2025-03-04 | CT_ITS ---
EXAMINATION: CT CERVICAL SPINE WITHOUT CONTRAST CLINICAL INFORMATION: Severe neck pain. COMPARISON: None available. TECHNIQUE: Contiguous axial images through the cervical spine using 3 mm collimation with bone and soft tissue algorithm. Sagittal and coronal reformatted images acquired. DLP: [address] examination was performed using dose optimization techniques as appropriate, variously including the following: *Automated exposure control *Adjustment of mA and/or kV according to patient size (this includes techniques or standardized protocols for targeted exams where dose is matched to indication/reason for exam; i.e. extremities or head) *Use of iterative reconstruction technique FINDINGS: Craniocervical junction is intact with normal alignment between the occipital condyles and the lateral masses of C1. Degenerative changes in the periodontal C1 region. Marginal osteophyte formation and subchondral cyst formation and decreased intervertebral disc height and vacuum phenomenon at C5-6 and C6-7 levels. Grade 1 retrolisthesis C5-6. Anterior marginal osteophyte formation at C4-5. Grade 1 anterolisthesis C4-5. Decreased intervertebral disc height at C3-4 and C4-5. Left-sided facet joints at multiple levels from C3-4 to C5-6 and right-sided facet joint hypertrophy at C5-6. No acute cortical disruption. Decreased AP diameter of the central spinal canal and C5-6 and C6-7 levels. No gross prevertebral compartment hematoma. Calcified plaques in the left ICA. Tympanic cavities and mastoid cells are aerated. The thyroid gland is not enlarged. No dominant nodules. 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 Fleischner guidelines were followed. Electronically signed by: Shahbaz Jack MD 03/04/2025 10:51 AM EDT
[2025-03-04 06:19] VITALS: BP 149/93; PULSE 97; RESP 20; TEMP 36.4; O2SAT 98; BMI 27.3
[2025-03-04 06:39] LABS: MANUAL DIFF FLAG NO
[2025-03-04 06:41] LABS: Hematocrit 47.7 % (42.0-52.0); Hemoglobin 16.9 g/dl (14.0-18.0); Imm Gran Abs Auto 0.03 X10*3/uL (0.00-0.03); Imm Gran Pct Auto 0.4 % (0.0-0.4); Lymphocytes Absolute Auto 1.4 X10*3/uL (1.2-4.9); Mean Corpuscular HGB Conc 35.4 g/dl (31.0-36.0); Mean Corpuscular Hemoglobin 32.0 pg (27.0-33.0); Mean Corpuscular Volume 90.3 fL (80.0-98.0); NRBC Abs Auto 0.000 X10*3/uL (0.0-0.012); NRBC Pct Auto 0.0 /100WBC (0.0-0.2); Platelet Count 195 X10*3/uL (160-400); Red Blood Count 5.28 X10*6/uL (4.60-5.80); White Blood Count 7.9 X10*3/uL (4.8-10.8)
[2025-03-04 06:48] LABS: INTERNATIONAL NORM RATIO 1.0 (0.9-1.1); Prothrombin Time 11.7 SEC (10.9-12.4)
[2025-03-04 06:56] LABS: Alanine Aminotransferase 30 U/L (0-40); Albumin Level 4.8 g/dL (3.5-5.0); Alkaline Phosphatase 54 U/L (39-117); Anion Gap 13 (12-20); Aspartate Amino Transferase 34 U/L (5-37); Blood Urea Nitrogen 17 mg/dL (9-16); Calcium 9.8 mg/dL (8.4-10.2); Carbon Dioxide 28 mmol/L (22-29); Chloride 102 mmol/L (96-108); Creatinine Clr Calc Pharmacy 73.0; Estimated Glomerular Filt Rate > 60; Potassium 3.9 mmol/L (3.3-5.1); Sodium 139 mmol/L (135-145); Total Protein 7.4 g/dL (6.5-8.0)
[2025-03-04 07:02] LABS: Troponin-I High Sensitivity 3.9 ng/L (<3.5-35.0)
--- NOTE | 2025-03-04 07:26 | ED.CHESTPAIN ---
HPI - Chest Pain General Chief Complaint: Chest Pain Stated Complaint: Possible AFib Time Seen by Provider: 03/04/25 06:50 Source: patient, family and old records reviewed Mode of arrival: ambulatory Limitations: no limitations History of Present Illness ED Provider: MARCO PRESLEY narrative: 74 yo male with PMH of TAVR in January of 2024, afib, CHF, normal cath, HTN, HLD who notes he never felt much better after TAVR he never felt 100% better. He notes he can tolerate living in afib and goes in and out. He can mow the lawn etc. Yesterday he felt off - nauseated and dizzy with standing. He has no headache, chest pain, dyspnea, no infectious symptoms or GIB symptoms. He notes he didn't eat dinner last night due to nausea but no abdominal pain. He is unsure what his HR has been and notes no change in BPs. He felt worse upon going to bathroom at 4am today and felt he was going to pass out x 2 with nausea and diaphoresis. No LOC but could not get around the house. He notes he doesn't normally feel like this. He has not taken his eliquis in 2 weeks he feels it makes him sick. He is on metoprolol 50mg ER no changes in his medications. MD complaint: chest pain Onset (ago): day(s) (yesterday ) Onset: during exertion Pain radiation: none Severity: moderate Relieving factors: nothing Exacerbating factors: exertion (walking) Context: other Associated symptoms: nausea and diaphoresis Treatment prior to arrival: none Related Data Home Medications ?Medication ?Instructions ?Recorded ?Confirmed finasteride 5 mg tablet 5 mg PO DAILY 11/19/23 12/19/23 simvastatin 20 mg tablet 20 mg PO BEDTIME 11/19/23 12/19/23 Previous Rx's ?Medication ?Instructions ?Recorded metoprolol succinate 50 mg 50 mg PO DAILY #30 tabs 12/09/23 tablet,extended release 24 hr (Toprol XL) apixaban 5 mg tablet (Eliquis) 5 mg PO BID #60 tabs 12/12/23 furosemide 20 mg tablet (Lasix) 20 mg PO DAILY #30 tabs 12/19/23 Allergies Allergy/AdvReac Type Severity Reaction Status Date / Time No Known Allergies Allergy Verified 03/04/25 06:21 Review of Systems Review of Systems: Constitutional : No Fever, No Chills, No Fatigue ENT/Mouth : No sore throat, No Rhinorrhea Eyes: No Eye Pain, No Swelling, No Redness Cardiovascular : No Chest Pain, No SOB, No Dyspnea on Exertion Respiratory : No Cough, No Sputum Gastrointestinal : pos Nausea, No Vomiting, No Diarrhea, No abdominal Pain Genitourinary : No Dysuria, No Urinary Frequency, No Hematuria, Musculoskeletal : No joint pain, No Myalgias, No Joint Swelling Skin : No Skin Lesions, No rash Neuro : No Weakness, No Numbness, pos Dizziness, no Headache All other systems reviewed and are negative [facility] Past Medical History Attestation statement: The following information was validated with the patient. Source: old records reviewed Medical History Aortic stenosis Abnormal echocardiogram CHF (congestive heart failure) Surgical History S/P cardiac catheterization Family History Family History Father Congenital stenosis of aorta Mother No problems noted. Social History Social History Alcohol intake: current Alcohol intake frequency: holidays/special occasions only Patient Tobacco Use Status: Never used Tobacco Smoked in Last 30 Days: No Use of substances other than those prescribed or required for medical reasons: No Advance Directives: No Advance Directives Information Provided: Yes Do you have a plan to hurt others: No Plan Physical Exam Vital Signs: Vital Signs: Last Vital Signs Temp 97.6 F 03/04/25 06:19 Pulse 64 03/04/25 10:09 Resp 14 03/04/25 10:09 BP 141/100 H 03/04/25 10:09 Pulse Ox 97 03/04/25 10:09 O2 Del Method Room Air 03/04/25 10:09 BMI result Body Mass Index 27.3 Appearance: Alert. Oriented X3. No acute distress. Eyes: Pupils equal, round and reactive to light. ENT: Pharynx normal. Neck: Normal inspection. Neck supple. no JVD CVS: irregular heart rate and rhythm. Pulses normal. Respiratory: No respiratory distress. Breath sounds normal. Abdomen: Soft and nontender. Skin: Skin warm and dry. Normal skin color. Normal skin turgor. Extremities: No lower extremity edema. No calf ttp Neuro: Oriented X 3. No motor deficit. No sensory deficit. CN2-12 intact Course Course Course Narrative: CT scan of cspine ordered has worsening chronic L sided pain no trauma Medical Decision Making Medical Decision Making [facility] Narrative: 74 yo male with PMH of TAVR in January of 2024, afib, CHF, normal cath, HTN, HLD now here with malaisea, nausea, dizziness when standing. He has no focal deficits and is fine at rest has symptoms when getting up to walk. At this time he is not on his eliquis due to he feels it makes him sick we did talk about stroke risk. It seems atypical to be the afib causing his symptoms as he does in and out chronically. He has no GIB symptoms. He could be orthostatic or having issues some pauses with afib go down to the 30s unclear if that is the source. No focal deficits to suggest stroke. Will obtain labs, orthos VS, look for any infectious pathology Differential Diagnosis Differential Diagnoses: The differential diagnosis associated with the presentation includes bradycardia, orthostatics, anemia, lyte abnormalilty, atypical ACS Admission/Observation Consideration of admission/observation: Escalation of care including admission/observation considered VS stable, no orthostatics, feels much better, trop flat x 2 up and walking no symptoms tolerating PO stable for DC at this time Lab Data MDM Lab Attestation statement: I reviewed the patient's lab results. 03/04/25 06:33 03/04/25 06:33 Labs: Lab Results 03/04/25 03/04/25 03/04/25 Range/Units 06:33 07:43 08:58 WBC 7.9 (4.8-10.8) X10*3/uL RBC 5.28 (4.60-5.80) X10*6/uL Hgb 16.9 (14.0-18.0) g/dl Hct 47.7 (42.0-52.0) % MCV 90.3 (80.0-98.0) fL MCH 32.0 (27.0-33.0) pg MCHC 35.4 (31.0-36.0) g/dl RDW 11.8 (11.0-16.0) % Plt Count 195 (160-400) X10*3/uL MPV 9.9 (9.4-12.4) fL Immature Gran % (Auto) 0.4 (0.0-0.4) % Neut % (Auto) 67.0 (45-73) % Lymph % (Auto) 17.7 L (20-40) % Cherry % (Auto) 10.3 (2-11) % Eos % (Auto) 3.6 (0-4) % Baso % (Auto) 1.0 (0-2) % Lymph # (Auto) 1.4 (1.2-4.9) X10*3/uL Cherry # (Auto) 0.8 (0.1-1.2) X10*3/uL Eos # (Auto) 0.3 (0.0-0.4) X10*3/uL Baso # (Auto) 0.1 (0.0-0.2) X10*3/uL Abs Immat Gran (auto) 0.03 (0.00-0.03) X10*3/uL Absolute Neuts (auto) 5.3 (2.0-8.3) x10*3/uL Absolute Nucleated RBC 0.000 (0.0-0.012) X10*3/uL Nucleated RBC % (auto) 0.0 (0.0-0.2) /100WBC PT 11.7 (10.9-12.4) SEC INR 1.0 (0.9-1.1) Sodium 139 (135-145) mmol/L Potassium 3.9 (3.3-5.1) mmol/L Chloride 102 (96-108) mmol/L Carbon Dioxide 28 (22-29) mmol/L Anion Gap 13 (12-20) BUN 17 H (9-16) mg/dL Creatinine 0.86 (0.5-1.4) mg/dL Estim Creat Clear Calc 73.0 Estimated GFR > 60 Random Glucose 102 (60-115) mg/dL Calcium 9.8 (8.4-10.2) mg/dL Magnesium 1.8 (1.6-2.6) mg/dL Total Bilirubin 0.8 (0.0-1.0) mg/dL AST 34 (5-37) U/L ALT 30 (0-40) U/L Alkaline Phosphatase 54 (39-117) U/L Troponin I High Sens 3.9 D 4.5 (<3.5-35.0) ng/L B-Natriuretic Peptide 170 H (<100) pg/mL Total Protein 7.4 (6.5-8.0) g/dL Albumin 4.8 (3.5-5.0) g/dL TSH 2.79 (0.32-4.0) uIU/mL Urine Color Yellow Urine Appearance Clear Urine pH 8.0 (5.0-9.0) Ur Specific [place] 1.010 (1.005-1.025) Urine Protein Negative (Neg-Trace) mg/dL Urine Glucose (UA) Negative (Negative) mg/dL Urine Ketones Negative (Negative) mg/dL Urine Blood Negative (Negative) Urine Nitrite Negative (Negative) Ur Leukocyte Esterase Negative (Negative) COVID-19 (BRICE) Negative (Negative) COVID-19 Clin Com See Note Independent Interpretation I performed an independent interpretation of an: EKG, Plain X-Ray and CT Scan (dd disease, spondylosis) Interpretation: Rate: 65 Rhythm: afib [place]: normal Normal QRS complex. ST T wave : no KERON, nonspecific ST T wave changes qTC:436 prior studies: no sig change from priors The study has been interpreted contemporaneously by me. . Radiology Impression Discussion of test interpretation with radiology: I have reviewed the radiologist's reading. Independent Historian Clinical information obtained from an independent historian. History obtained from or confirmed by: Spouse External Record Review External record reviewed: Outpatient record Discharge Plan Discharge Clinical Impression: Malaise, Nausea Patient Disposition: Home, Self-Care Instructions: Acute Nausea and Vomiting (DC), Fatigue (ED) Additional Instructions: normal blood counts, normal urine cardiac test x 2 are normal normal EKG chest xray no acute findings significant disease in neck causing pressure on nerve roots you should follow up with your PCP I did put name on spine team on your discharge rest and stay hydrated return for any worsening symptoms or concerns. YOU NEED TO TAKE YOUR ELIQUIS YOU ARE AT SIGNIFICANT RISK OF STROKE FINDINGS: Craniocervical junction is intact with normal alignment between the occipital condyles and the lateral masses of C1. Degenerative changes in the periodontal C1 region. Marginal osteophyte formation and subchondral cyst formation and decreased intervertebral disc height and vacuum phenomenon at C5-6 and C6-7 levels. Grade 1 retrolisthesis C5-6. Anterior marginal osteophyte formation at C4-5. Grade 1 anterolisthesis C4-5. Decreased intervertebral disc height at C3-4 and C4-5. Left-sided facet joints at multiple levels from C3-4 to C5-6 and right-sided facet joint hypertrophy at C5-6. No acute cortical disruption. Decreased AP diameter of the central spinal canal and C5-6 and C6-7 levels. No gross prevertebral compartment hematoma. Calcified plaques in the left ICA. Tympanic cavities and mastoid cells are aerated. The thyroid gland is not enlarged. No dominant nodules. 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 Fleischner guidelines were followed. Electronically signed by: Shahbaz Jack MD 03/04/2025 10:51 AM Prescriptions: No Action metoprolol succinate [Toprol XL] 50 mg tablet extended release 24 hr 50 mg PO DAILY Qty: 30 5RF Eliquis 5 mg tablet 5 mg PO BID Qty: 60 5RF finasteride 5 mg tablet 5 mg PO DAILY simvastatin 20 mg tablet 20 mg PO BEDTIME furosemide [Lasix] 20 mg tablet 20 mg PO DAILY Qty: 30 5RF Referrals: [facility] [place] [facility] [Provider Group, Neurosurgery] Referral Note: CALL TO SCHEDULE APPOINTMENT Print Language: Serbian
[2025-03-04 07:47] LABS: Magnesium 1.8 mg/dL (1.6-2.6)
[2025-03-04 08:18] LABS: COVID-19 Test Negative (Negative); IDNOW Serial# 58CA691E
[2025-03-04 08:23] LABS: Troponin-I High Sensitivity 4.5 ng/L (<3.5-35.0)
[2025-03-04 08:46] LABS: B Type Natriuretic Peptide 170 pg/mL (<100)
[2025-03-04 08:55] VITALS: BP 128/92; BP 135/89; BP 143/82; PULSE 68; PULSE 81; PULSE 83
[2025-03-04 09:07] LABS: Appearance Urine Clear; Glucose Urine UA Negative (Negative); PH 8.0 (5.0-9.0); Specific Gravity - Urine 1.010 (1.005-1.025)
[2025-03-04 10:08] VITALS: BP 126/86; PULSE 69; RESP 14; O2SAT 98
[2025-03-04 10:09] VITALS: BP 141/100; PULSE 64; RESP 14; O2SAT 97
--- NOTE | 2025-03-04 10:30 | PC.NURSE ---
Ambulation trial completed. Vital signs pre and post (1008 and 1009) Pt reports feeling well with ambulation, no complaints offered.
[2025-03-04 11:28] VITALS: BP 141/87; PULSE 67; RESP 18; TEMP -17.7; TEMP 0; O2SAT 94
== END 2025-03-04 11:32 | disposition home or self-care (01) ==
PROVIDERS: Emergency Provider Emergency Medicine; PCP Internal Medicine Medical Oncology
DX: R11.0 Nausea (principal); R53.81 Other malaise; R53.1 Weakness; R55 Syncope and collapse; I48.91 Unspecified atrial fibrillation; R61 Generalized hyperhidrosis; I11.0 Hypertensive heart disease with heart failure; I50.9 Heart failure, unspecified; E78.5 Hyperlipidemia, unspecified
CPT/HCPCS: 36415; 71045; 72125; 80053; 81003; 83735; 83880; 84443; 84484; 85025; 85610; 87635; 93005; 99283; 99284; 99285

== ENCOUNTER → 2025-03-04 06:18 | Outpatient (BNV) | payer MEDICARE, SELFPAY | PROVIDERS: Emergency Provider Emergency Medicine; PCP Internal Medicine Medical Oncology; Visit Provider Internal Medicine Cardiovascular Disease | DX: I48.91 Unspecified atrial fibrillation (principal) | CPT/HCPCS: 93010 ==

== ENCOUNTER → 2025-03-04 07:22 | Outpatient (BNV) | payer MEDICARE, SELFPAY | PROVIDERS: Emergency Provider Emergency Medicine; PCP Internal Medicine Medical Oncology; Visit Provider Radiology Diagnostic Radiology | DX: M48.02 Spinal stenosis, cervical region (principal); R53.1 Weakness | CPT/HCPCS: 71045; 72125 ==